=== PATIENT | male | born 1990 | race Caucasian/White ===

== ENCOUNTER 2024-01-24 08:15 | Day surgery (SDC) | payer OTHER ==
[~2024-01-24] VITALS: Ht 180.3 cm; Wt 104.6 kg
[~2024-01-24 08:15] MED LIST: LR 1,000 ML IV SCH; Ondansetron 4 MG/2 ML VIAL IV PRN
[2024-01-24 09:04] VITALS: BP 132/80; PULSE 63; TEMP 97.2
[2024-01-24] MEDS ORDERED: OMEGA-3 FISH1000 MG PO (09:28)
[2024-01-24] MEDS ORDERED: WELLBUTRIN XL150 MG PO (09:28)
[2024-01-24] MEDS ORDERED: QUALITY CHOICE1 T22 PO (09:29)
[2024-01-24] MEDS ORDERED: VITAMIN D31000 I1 PO (09:29)
[2024-01-24] MEDS ORDERED: NATURAL IRON65 MG PO (09:29)
[2024-01-24] MEDS ORDERED: VITAMIN C500 MG PO (09:30)
--- NOTE | 2024-01-24 09:37 | NUR ---
The patient ambulated back to [facility] independently using a steady gait and appeared to tolerate the activity well. Vital signs obtained. Consent signed. 20G IV started in right hand with LR infusing without difficulty. Assessment completed. Home medications reconcilled. Warm blanket provided. Call light is within reach. Denies any further needs at this time.
[2024-01-24] MEDS ORDERED: Lidocaine PF 2% (20 MG/ML) 5 ML VIAL ONE (10:22)
[2024-01-24 11:10] VITALS: BP 112/82; PULSE 61
[2024-01-24 11:20] VITALS: BP 119/62; PULSE 62
[2024-01-24 11:30] VITALS: BP 115/83; PULSE 62
--- NOTE | 2024-01-24 11:59 | NUR ---
1110 PATIENT RETURNS TO [facility] VIA CART. PT AWAKE AND ALERT. RESPIRATIONS UNLABORED. AMBULATED TO RECLINER CHAIR WITH 2:1 SBA. PT DENIES NAUSEA OR ABDOMINAL PAIN. HOOKED UP TO MONITOR AND VS OBTAINED. CALL LIGHT AT SIDE . 1115 PATIENT TOLERATING COFFEE AND MUFFIN, CHEESE, CRACKERS WITHOUT NAUSEA OR DIFFICULTY SWALLOWING (EGD ONLY). 1120 IN ROOM SPEAKING WITH PATIENT. 1125 D/C INSTRUCTIONS REVIEWED WITH PATIENT. PT VERBALIZED UNDERSTANDING AND A COPY OF INSTRUCTIONS PROVIDED IN D/C FOLDER. 1130 PATIENT DRESSES SELF. 1200 PATIENT DISCHARGED FROM UNIT VIA W/C TO A PERSONAL VEHICLE. PT LEFT HOSPITAL IN STABLE CONDITION.
== END 2024-01-24 12:00 | disposition home or self-care (01) ==
LOC: SDCO 08:15
DX: K29.50 Unspecified chronic gastritis without bleeding (principal); K21.00 Gastro-esophageal reflux disease with esophagitis, without bleeding; R19.5 Other fecal abnormalities; K22.89 Other specified disease of esophagus; K62.1 Rectal polyp; Z87.891 Personal history of nicotine dependence
CPT/HCPCS: J2704; J7120